=== PATIENT | female | born 1985 | race Caucasian/White ===

== ENCOUNTER 2018-04-13 03:32 | Emergency (ER) | payer OTHER ==
[~2018-04-13] VITALS: Ht 162.6 cm; Wt 94.3 kg
[2018-04-13 03:45] VITALS: BP 124/68
[2018-04-13] MEDS ORDERED: AZIT250T6 PO (04:21)
--- NOTE | 2018-04-13 04:21 | PHYS DOC ---
Past History Past Medical History: Other Alcohol Use: Rarely Drug Use: None Adult General Chief Complaint Chief Complaint: EARACHE/EAR PAIN HPI HPI 32 year old female presents with bilateral ear pain. The patient started to noticed that she had some right-sided ear pain earlier today. This intensified through the evening and night. The patient had a feeling of a pop and a fluid sensation followed by severe pain in both the right and left ears. Patient has a history of frequent ear infections as an adult. She is allergic to penicillin and Keflex. She denies fever or chills. She denies discharge from the ears. Review of Systems Review of Systems Constitutional: Denies fever or chills [] Eyes: Denies change in visual acuity, redness, or eye pain [] HENT: Denies nasal congestion or sore throat. Ear pain [] Respiratory: Denies cough or shortness of breath [] Cardiovascular: No additional information not addressed in HPI [] GI: Denies abdominal pain, nausea, vomiting, bloody stools or diarrhea [] : Denies dysuria or hematuria [] Musculoskeletal: Denies back pain or joint pain [] Integument: Denies rash or skin lesions [] Neurologic: Denies headache, focal weakness or sensory changes [] Endocrine: Denies polyuria or polydipsia [] All other systems were reviewed and found to be within normal limits, except as documented in this note. Current Medications Current Medications Current Medications Medications (Trade) Dose Ordered Sig/Russ Start Time Stop Time Status Last Admin Dose Admin Acetaminophen/ Hydrocodone Bitart (Lortab 5/325) 1 tab 1X ONCE 04/13/18 04:15 04/13/18 04:16 UNV Azithromycin (Zithromax) 500 mg 1X ONCE 04/13/18 04:30 04/13/18 04:31 Allergies Allergies Allergies Coded Allergies Type Severity Reaction Last Updated Verified cephalexin Allergy Unknown 04/13/18 Yes penicillin G Allergy Unknown 04/13/18 Yes Physical Exam Physical Exam Constitutional: Well developed, well nourished, no acute distress, non-toxic appearance. [] HENT: Normocephalic, atraumatic, oropharynx moist, no oral exudates, nose normal. Left tympanic membrane erythematous and bulging. Right tympanic membrane completely obscured by dry, hard cerumen.[] Eyes: PERRLA, EOMI, conjunctiva normal, no discharge. [] Neck: Normal range of motion, no tenderness, supple, no stridor. [] Cardiovascular:Heart rate regular rhythm, no murmur [] Lungs & Thorax: Bilateral breath sounds clear to auscultation [] Abdomen: Bowel sounds normal, soft, no tenderness, no masses, no pulsatile masses. [] Skin: Warm, dry, no erythema, no rash. [] Back: No tenderness, no CVA tenderness. [] Extremities: No tenderness, no cyanosis, no clubbing, ROM intact, no edema. [] Neurologic: Alert and oriented X 3, normal motor function, normal sensory function, no focal deficits noted. [] Psychologic: Affect normal, judgement normal, mood normal. [] Current Patient Data Vital Signs Vital Signs Date Time Temp Pulse Resp B/P (MAP) Pulse Ox O2 Delivery O2 Flow Rate FiO2 04/13/18 03:45 98.2 71 18 97 Room Air EKG EKG [] Radiology/Procedures Radiology/Procedures [] Course & Med Decision Making Course & Med Decision Making Pertinent Labs and Imaging studies reviewed. (See chart for details) The patient has an obvious otitis media of the left ear. I attempted to do extra mobile in the right ear, but the patient is just too sensitive and the wax was too hardened. I have advised that she seek an ENT for this removal due to her history and sensitivity. I also advised that she go to have her removed after her infection resolves. I have given the patient 500 mg of azithromycin and a [place] 5/325 in the ED. I will give her prescription for the rest of the Z- Manuel. [] Dragon Disclaimer Dragon Disclaimer This electronic medical record was generated, in whole or in part, using a voice recognition dictation system. Departure Departure: Impression: Primary Impression: Left otitis media with effusion Additional Impression: Impacted cerumen of right ear Disposition: HOME, SELF-CARE Condition: STABLE Referrals: PCP,OLAMIDE (PCP) Patient Instructions: Otitis Media, Adult, [id number] Scripts Azithromycin (AZITHROMYCIN TABLET) 250 Mg Tablet 250 MG PO DAILY for ANTI-BIOTIC for 4 Days, #4 TAB 0 Refills Prov: ABBE DOWNING DO 04/13/18 Problem Qualifiers ABBE DOWNING DO Apr 13, 2018 04:21
[2018-04-13] MEDS ORDERED: AZITHROMYCIN 250 MG TABLET. PO ONE (04:30)
[2018-04-13] MEDS ORDERED: HYDROcodone/APAP 5/325MG 1 TAB TABLET PO ONE (04:30)
== END 2018-04-13 04:30 | disposition home or self-care (01) ==
LOC: ER 03:32
DX: H65.92 Unspecified nonsuppurative otitis media, left ear (principal); H61.22 Impacted cerumen, left ear; Z88.0 Allergy status to penicillin; Z88.1 Allergy status to other antibiotic agents
CPT/HCPCS: 99283; J0456

== ENCOUNTER 2019-09-18 03:18 | Emergency (ER) | payer SELFPAY ==
[~2019-09-18] VITALS: Ht 162.6 cm; Wt 77.3 kg
[2019-09-18 03:18] VITALS: BP 124/60
[~2019-09-18 03:18] MED LIST: AZIT250T6 PO
--- NOTE | 2019-09-18 03:37 | PHYS DOC ---
Past History Past Medical History: Other Alcohol Use: Rarely Drug Use: None General Adult HPI: HPI: " ..My right ear is all sudden started killing me tonight... blood coming out of this right ear.." Patient is a 34 year old female who presents with above hx and compliants of ear pain starting tonight with drainage and blood coming out of Rt. ear. Patient had been wearing her earphones when she slept tonight. Patient denies any recent swimming. No history of immunosuppression. No history of travel. No specific ill contacts. Patient denies cleaning ears with Q-tips. Review of Systems: Review of Systems: Constitutional: Denies fever or chills Eyes: Denies change in visual acuity HENT: Complains of right ear pain Respiratory: Denies cough or shortness of breath Cardiovascular: Denies chest pain or edema GI: Denies abdominal pain, nausea, vomiting, bloody stools or diarrhea : Denies dysuria Musculoskeletal: Denies back pain or joint pain Integument: Denies rash Neurologic: Denies headache, focal weakness or sensory changes Endocrine: Denies polyuria or polydipsia Lymphatic: Denies swollen glands Psychiatric: Denies depression or anxiety Heart Score: Risk Factors: Risk Factors: DM, Current or recent (<one month) smoker, HTN, HLP, family history of CAD, obesity. Risk Scores: Score 0 - 3: 2.5% MACE over next 6 weeks - Discharge Home Score 4 - 6: 20.3% MACE over next 6 weeks - Admit for Clinical Observation Score 7 - 10: 72.7% MACE over next 6 weeks - Early Invasive Strategies Family History: Family History: Noncontributory Current Medications: Current Meds: See nursing for home meds Allergies: Allergies: Allergies Coded Allergies Type Severity Reaction Last Updated Verified cephalexin Allergy Unknown 04/13/18 Yes penicillin G Allergy Unknown 04/13/18 Yes Physical Exam: PE: Constitutional:in acute distress, non-toxic appearance. [] HENT: Normocephalic, atraumatic, bilateral external ears are inflamed and red, right TM appears to be ruptured and draining pus with blood, oropharynx moist, no oral exudates, nose swollen turbinates and clear rhinorrhea Eyes: PERRLA, EOMI, conjunctiva normal, no discharge. [] Neck: Normal range of motion, no tenderness, supple, no stridor. [] Cardiovascular:Heart rate regular rhythm, no murmur [] Lungs & Thorax: Bilateral breath sounds equal at apex with scattered wheezes auscultation [] Abdomen: Bowel sounds normal, soft, no tenderness, no masses, no pulsatile masses. Obese. Skin: Warm, dry, no erythema, no rash. [] Back: No tenderness, no CVA tenderness. [] Extremities: No tenderness, no cyanosis, no clubbing, ROM intact, no edema. [] Neurologic: Alert and oriented X 3, normal motor function, normal sensory function, no focal deficits noted. [] Psychologic: Affect anxious, tearful, judgement normal, mood normal. [] EKG: EKG: [] Radiology/Procedures: Radiology/Procedures: [] Course & Med Decision Making: Course & Med Decision Making Pertinent Labs and Imaging studies reviewed. (See chart for details) Patient take Tylenol and ibuprofen as needed for pain. Patient to avoid water in ears. Patient not to use earphones. Patient use Cortisporin eardrops to both ears 4 times a day 2 drops each ear. Patient take Bactrim DS twice a day.. Patient may take Vicoprofen up to 4 times a day for marked pain. Patient follow-up primary care. Patient return if any concerns. Impression: 1. Bilateral external otitis 2. Right otitis media with TM rupture [] Dragon Disclaimer: Jd Disclaimer: This electronic medical record was generated, in whole or in part, using a voice recognition dictation system. Departure Departure: Disposition: 01 HOME/RESIDENCE PRIOR TO ADM Condition: STABLE Referrals: PCP,NO (PCP) Scripts Hydrocodone/Ibuprofen (HYDROCODONE-IBUPROFEN 7.5-200 ) 1 Each Tablet 1 TAB PO PRN Q6HRS PRN for PAIN, #30 TAB 0 Refills Prov: TERRANCE RAMIREZ MD 09/18/19 Sulfamethoxazole/Trimethoprim (BACTRIM DS TABLET) 1 Each Tablet 1 TAB PO BID for otitis for 10 Days, #20 TAB 0 Refills Prov: TERRANCE RAMIREZ MD 09/18/19 Justification of Admission: Justification of Admission: Justification of Admission Dx: N/A Dragon Disclaimer This chart was dictated in whole or in part using Voice Recognition software in a busy, high-work load, and often noisy Emergency Department environment. It may contain unintended and wholly unrecognized errors or omissions. TERRANCE RAMIREZ MD Sep 18, 2019 03:37
[2019-09-18] MEDS ORDERED: SULF1TAB24 PO (03:52)
[2019-09-18] MEDS ORDERED: HYDR-1179 PO (03:53)
[2019-09-18] MEDS ORDERED: SMZ/TMP 800/160MG TABLET. PO ONE (04:30)
[2019-09-18] MEDS ORDERED: NEOMYCIN/POLYMYXIN/HC OTIC SUSPENSION 10ML BOTTLE. AD ONE (04:30)
[2019-09-18] MEDS ORDERED: ACETAMINOPHEN 500 MG TABLET PO ONE (04:30)
[2019-09-19] MEDS ORDERED: AZIT500T PO (17:45)
== END 2019-09-18 04:15 | disposition home or self-care (01) ==
LOC: ER 03:18
DX: H60.93 Unspecified otitis externa, bilateral (principal); H66.91 Otitis media, unspecified, right ear; H72.91 Unspecified perforation of tympanic membrane, right ear; Z88.1 Allergy status to other antibiotic agents; Z88.0 Allergy status to penicillin
CPT/HCPCS: 99284

== ENCOUNTER 2019-09-19 17:18 | Emergency (ER) | payer SELFPAY ==
[~2019-09-19] VITALS: Ht 162.6 cm; Wt 91.1 kg
[~2019-09-19 17:18] MED LIST changes: +HYDR-1179 PO; +SULF1TAB24 PO
[2019-09-19 17:20] VITALS: BP 140/91
[2019-09-19] MEDS ORDERED: AZIT500T PO (17:45)
[2019-09-19] MEDS ORDERED: KETOROLAC 30 MG/ML VIAL. IM ONE (17:45)
--- NOTE | 2019-09-19 17:45 | PHYS DOC ---
Past History Past Medical History: Other Past Surgical History: No Surgical History Alcohol Use: None Drug Use: None General Adult EDM: Chief Complaint: EARACHE/EAR PAIN HPI: HPI: Patient is a 34 year old female who presents with moderate right-sided ear pain that is now referred to her right side jaw. Symptoms been progressing for the past 2 days. Patient was seen in this ER and started on Cortisporin eardrops as well as Bactrim. She has been taking her medication as prescribed but her symptoms got worse. She is having trouble getting her drops into her right ear. Patient was diagnosed with ruptured eardrum and otitis media. There is purulent drainage coming from her right ear. Patient is allergic to Keflex. Patient is complaining of some diminished hearing to that affected side. There is no reported fevers and chills. Patient is otherwise benign-appearing. Review of Systems: Review of Systems: Constitutional: Denies fever or chills Eyes: Denies change in visual acuity HENT: Denies nasal congestion or sore throat, moderate right ear pain with purulent drainage Respiratory: Denies cough or shortness of breath Cardiovascular: Denies chest pain or edema GI: Denies abdominal pain, nausea, vomiting, bloody stools or diarrhea : Denies dysuria Musculoskeletal: Denies back pain or joint pain Integument: Denies rash Neurologic: Denies headache, focal weakness or sensory changes Endocrine: Denies polyuria or polydipsia Lymphatic: Denies swollen glands Psychiatric: Denies depression or anxiety Heart Score: Risk Factors: Risk Factors: DM, Current or recent (<one month) smoker, HTN, HLP, family history of CAD, obesity. Risk Scores: Score 0 - 3: 2.5% MACE over next 6 weeks - Discharge Home Score 4 - 6: 20.3% MACE over next 6 weeks - Admit for Clinical Observation Score 7 - 10: 72.7% MACE over next 6 weeks - Early Invasive Strategies Allergies: Allergies: Allergies Coded Allergies Type Severity Reaction Last Updated Verified cephalexin Allergy Unknown 09/19/19 Yes penicillin G Allergy Unknown 09/19/19 Yes Physical Exam: PE: Constitutional: Well developed, well nourished, mild acute distress, non-toxic appearance. [] HENT: Normocephalic, atraumatic, left tympanic membrane essentially normal, right tympanic membrane not visualized. The external canal has nearly swollen shut., oropharynx moist, no oral exudates, nose normal. [] Eyes: PERRL, EOMI, conjunctiva normal, no discharge. [] Neck: Normal range of motion, no tenderness, supple, no stridor. [] Cardiovascular:Heart rate regular rhythm, no murmur [] Lungs & Thorax: Bilateral breath sounds clear to auscultation [] Abdomen: Bowel sounds normal, soft, no tenderness, no masses, no pulsatile masses. [] Skin: Warm, dry, no erythema, no rash. [] Back: No tenderness, no CVA tenderness. [] Extremities: No tenderness, no cyanosis, ROM intact, no edema. [] Neurologic: Alert and oriented, normal motor function, normal sensory function, no focal deficits noted. [] Psychologic: Affect normal, judgement normal, mood anxious. [] EKG: EKG: [] Radiology/Procedures: Radiology/Procedures: [] Course & Med Decision Making: Course & Med Decision Making Pertinent Labs and Imaging studies reviewed. (See chart for details) 1740 patient has a significant right-sided otitis externa. The external canal is too narrow to pass a wick. Right away referral to ENT recommended. Patient has a prescription for Vicoprofen. Will add Zithromax because patient has allergies to Keflex. Patient also given an injection of Toradol. Patient is not toxic appearing but is tearful and in moderate pain Dragon Disclaimer: Jd Disclaimer: This electronic medical record was generated, in whole or in part, using a voice recognition dictation system. Departure Departure: Impression: Primary Impression: Diffuse otitis externa, right ear Qualified Codes: H60.311 - Diffuse otitis externa, right ear Disposition: HOME/RESIDENCE PRIOR TO ADM Condition: STABLE Referrals: PCP,NO (PCP) Patient Instructions: Otitis Externa Additional Instructions: Continue Cortisporin drops 4 drops 4 times a day to the right ear, call and see ear nose and throat doctor right away and follow. The on-call physician is Dr. Antonia Fiore and her office number is: [phone] Scripts Azithromycin (ZITHROMAX) 500 Mg Tablet 1 TAB PO DAILY for otitis, #3 TAB Prov: DENI CLEMENTE DO 09/19/19 Justification of Admission: Justification of Admission: Justification of Admission Dx: N/A DENI CLEMENTE DO Sep 19, 2019 17:45
== END 2019-09-19 18:16 | disposition home or self-care (01) ==
LOC: ER 17:18
DX: H60.311 Diffuse otitis externa, right ear (principal); Z88.1 Allergy status to other antibiotic agents; Z88.0 Allergy status to penicillin
CPT/HCPCS: 96372; 99283; J1885

== ENCOUNTER → 2021-05-20 | Outpatient (CLI) | payer OTHER ==
[~2021-05-20] MED LIST changes: +AZIT500T PO
--- NOTE | 2021-05-20 17:20 | RAD ---
US EXT NON VASC RIGHT History:Reason: RT AXILLARY LUMP / Spl. Instructions: / History: Comparison: None Technique: Sonographic examination of the right axillary region Findings: Heterogeneous hypoechoic lesion within the right axillary subcutaneous tissues measures 1.5 x 0.9 x 0 .3 cm. There is a tract communicating with the cutaneous surface. Impression: 1. Right axillary complicated cystic lesion communicating with the cutaneous surface, may represent epidermal inclusion cyst. Recommend clinical follow-up and imaging follow-up if interval growth. Electronically signed by: Juan Tam DO (05/20/2021 5:17 PM) [facility] [id number]
== END ==
LOC: US 11:41
PROVIDERS: ATTEND Obstetrics & Gynecology
DX: N63.31 Unspecified lump in axillary tail of the right breast (principal)
CPT/HCPCS: 76881